=== PATIENT | female | born 1955 | race Caucasian/White ===

== ENCOUNTER → 2017-10-26 | Outpatient (CLI) | payer OTHER ==
[~2017-10-26] MED LIST: AZIT250 PO; CYCL10 PO; HYDACE5 PO; NAPR500 PO; NORT10 PO; Nolvadex20 MG; ONDA4 PO; OXYACE5T PO; PSEU120ER PO; RXCYCL10 PO; RXHYDACE PO; RXOXYACE PO; RXPROM25 PO
== END | disposition home or self-care (01) ==
LOC: LAB 10:40 → LAB SHORT 10:40
DX: R30.0 Dysuria (principal)
CPT/HCPCS: 87086

== ENCOUNTER → 2017-12-29 | Outpatient (CLI) | payer OTHER | END | disposition home or self-care (01) | LOC: LAB 14:30 → LAB SHORT 14:30 | DX: N39.0 Urinary tract infection, site not specified (principal); R30.0 Dysuria | CPT/HCPCS: 87077; 87086; 87186 ==

== ENCOUNTER 2019-11-20 09:13 | Emergency (ER) | payer OTHER ==
[~2019-11-20] VITALS: Ht 162.6 cm; Wt 74.8 kg
[~2019-11-20 09:13] MED LIST changes: +OMEPRAZOLE MAGN20 MG PO
[2019-11-20] MEDS ORDERED: Fiorinal Capsu1 EACH PO (11:04)
[2019-11-20] MEDS ORDERED: ONDA4ODT MM (11:04)
== END 2019-11-20 11:25 | disposition home or self-care (01) ==
LOC: ER 09:13
DX: G43.909 Migraine, unspecified, not intractable, without status migrainosus (principal)
CPT/HCPCS: 36415; 96361; 96374; 96375; 99283-25; J1200; J1885; J2765; J7030

== ENCOUNTER 2022-03-10 11:56 | Day surgery (SDC) | payer OTHER ==
[~2022-03-10] VITALS: Ht 172.7 cm; Wt 85.2 kg
[~2022-03-10 11:56] MED LIST changes: +Fiorinal Capsu1 EACH PO; +MYRBETRIQ25 MG PO; +NAPR220 PO; +ONDA4ODT MM; +TRIM100 PO; +Vitamin D2000 UNIT PO
== END 2022-03-10 13:36 | disposition home or self-care (01) ==
LOC: ORSCSDS 11:56
PROVIDERS: Surgery
PROC: 0DB48ZX Excision of Esophagogastric Junction, Via Natural or Artificial Opening Endoscopic, Diagnostic (ICD-10-PCS; principal; 2022-03-10 13:00)
PROC: 0DB68ZX Excision of Stomach, Via Natural or Artificial Opening Endoscopic, Diagnostic (ICD-10-PCS; principal; 2022-03-10 13:00)
DX: K22.70 Barrett's esophagus without dysplasia (principal); K21.00 Gastro-esophageal reflux disease with esophagitis, without bleeding; Z80.0 Family history of malignant neoplasm of digestive organs; Z86.16 Personal history of COVID-19; F32.A Depression, unspecified; Z79.899 Other long term (current) drug therapy
CPT/HCPCS: 88305; 88342; J2704; J7120

== ENCOUNTER 2025-05-22 07:57 | Day surgery (SDC) | payer OTHER ==
[2025-05-22] VITALS (31 sets, daily range): BP systolic 90–174; BP diastolic 63–136
[~2025-05-22] VITALS: Ht 175.3 cm; Wt 85.3 kg
[~2025-05-22 07:57] MED LIST changes: +GEMTESA75 MG PO
--- NOTE | 2025-05-22 08:29 | NUR ---
Patient States Post-Procedure ride home has been arranged. Patient confirms NPO status and agrees with scheduled surgery. Patient states colon prep results clear.
[2025-05-22 09:23] LABS: Ferritin, Serum 150.0 ng/mL (8-252); Total Iron Binding Capacity 368.0 ug/dL (250-450)
[2025-05-22] MEDS ORDERED: Ipratropium/Albuterol SulF 2.5-0.5MG/3 ML Amp ONE (09:45)
[2025-05-22] MEDS ORDERED: Ondansetron HCl 2 MG / ML 2ML Vial ONE (09:47)
--- NOTE | 2025-05-22 09:56 | NUR ---
05/22/25 0956 Tricia Thomas CONFIRMED AND REVIEWED H&P, MEDCICATIONS, ALLERGIES, MEDICAL HISTORY, RESPIRATORY HISTORY, VITAL SIGNS, 3-LEAD EKG, CONSENTS, AND PHYSICIAN ORDERS. PATIENT CONFIRMS NPO STATUS AND AGREES WITH SCHEDULED PROCEDURE. MONITOR INTACT WITH CONTINUOUS PULSE OXIMETRY, CAPNOGRAPHY, 3-LEAD EKG, INTERMITTENT BP. SUPPLEMENTAL O2 TO BE TITRATED THROUGHOUT PROCEDURE TO MAINTAIN O2 SATURATION ABOVE 90%. PATIENT DETERMINED TO BE ASA APPROPRIATE FOR PROPOFOL SEDATION PRIOR TO START OF PROCEDURE BY DR. WEST.
[2025-05-22] MEDS ORDERED: Ketorolac Tromethamine 30mg Vial IV ONE (10:20)
--- NOTE | 2025-05-22 11:23 | NUR ---
TO STEP POST PROCEDURE. COUGH, EXP WHEEZE NOTED. 4MG ZOFRAN GIVEN IN PROCEDURE ROOM FOR NAUSEA, DUONEB ORDERED PER DR. WEST. REPORTS 5/10 ALVARADO PAIN, 30MG TORADOL GIVEN IV. PT TO XRAY FOR 2VIEW CXR. REPORTS IMPROVEMENT IN PAIN/COUGH. DR. WEST AT BEDSIDE, OK FOR DISCHARGE. DC'D IV INTACT. DC'D VIA WC TO PRIVATE CAR WITH [employer] WITH BELONGINGS/INSTRUCTIONS.
[2025-05-22] MEDS ORDERED: Ipratropium/Albuterol SulF 2.5-0.5MG/3 ML Amp INH ONE (13:50)
== END 2025-05-22 11:15 | disposition home or self-care (01) ==
LOC: ORSCMMR 07:57 → ORD 09:15 → ORSCMMR 09:15
PROVIDERS: Surgery
PROC: 0DB68ZX Excision of Stomach, Via Natural or Artificial Opening Endoscopic, Diagnostic (ICD-10-PCS; principal; 2025-05-22 09:15)
PROC: 0DB48ZX Excision of Esophagogastric Junction, Via Natural or Artificial Opening Endoscopic, Diagnostic (ICD-10-PCS; principal; 2025-05-22 09:15)
PROC: 0DJD8ZZ Inspection of Lower Intestinal Tract, Via Natural or Artificial Opening Endoscopic (ICD-10-PCS; principal; 2025-05-22 09:15)
DX: K21.9 Gastro-esophageal reflux disease without esophagitis (principal); K44.9 Diaphragmatic hernia without obstruction or gangrene; Z12.11 Encounter for screening for malignant neoplasm of colon; Z80.0 Family history of malignant neoplasm of digestive organs; F32.A Depression, unspecified; Z85.3 Personal history of malignant neoplasm of breast; Z79.899 Other long term (current) drug therapy
CPT/HCPCS: 43239; G0105; 71046; 82728; 83540; 83550; 88305; 88342; J1885; J2405; J2704; J7120